=== PATIENT | male | born 1990 | race Caucasian/White ===

== ENCOUNTER → 2016-10-13 | Outpatient (CLI) | payer OTHER ==
[2015-05-19 11:20] VITALS: BP 125/79
--- NOTE | 2016-10-13 15:27 | KCIC ---
Examination: Two views of the chest HISTORY Pneumonia, wheezing, cough. COMPARISON 05/11/2015. Findings : The cardiomediastinal silhouette grossly appears unremarkable. Mild prominent appearing bilateral perihilar bronchovascular markings could be secondary to bronchitis or atypical infection. There are few airspace opacities identified in the right mid lung zone and right lower lobe. No evidence of pleural effusion or pneumothorax. IMPRESSION Mild prominent appearing bilateral perihilar bronchovascular markings could be due to atypical infection or bronchitis. There are few airspace opacities identified in the right mid lung zone and right lung base likely atelectasis or infiltrates. Followup to resolution. Electronically signed by: Alfonso Adam (Oct 13, 2016 15:26:20)
== END | disposition home or self-care (01) ==
LOC: KCIC 15:02
PROVIDERS: ATTEND Nurse Practitioner Family
DX: J18.9 Pneumonia, unspecified organism (principal)
CPT/HCPCS: 71020

== ENCOUNTER → 2017-09-07 | Outpatient (CLI) | payer BC | END | disposition home or self-care (01) | LOC: KCIC 13:38 | DX: R07.89 Other chest pain (principal); R68.83 Chills (without fever); R00.9 Unspecified abnormalities of heart beat | CPT/HCPCS: 71046 ==

== ENCOUNTER 2019-08-25 16:50 | Emergency (ER) | payer SELFPAY ==
[~2019-08-25] VITALS: Ht 182.9 cm; Wt 72.0 kg
[2019-08-25 17:11] VITALS: BP 148/92
[2019-08-25] MEDS ORDERED: cefTRIAXone IM 250 MG VIAL IM ONE (17:15)
[2019-08-25] MEDS ORDERED: AZITHROMYCIN 250 MG TABLET. PO ONE (17:15)
[2019-08-25 17:19] LABS: BILIRUBIN,URINE NEGATIVE (NEG); CLARITY,URINE CLOUDY; COLOR,URINE YELLOW; NITRITE,URINE NEGATIVE (NEG); PH,URINE 7.5; PROTEIN,URINE NEGATIVE (NEG-TRACE)
--- NOTE | 2019-08-25 17:25 | PHYS DOC ---
Past Medical History Past Medical History: Depression, Hypertension Additional Past Medical Histor: Tourettes Past Surgical History: Other Additional Past Surgical Histo: [place] teeth removed Alcohol Use: Heavy Drug Use: Marijuana Adult General Chief Complaint Chief Complaint: URINARY FREQUENCY HPI HPI Patient is a 28 year old male who presents with urinary frequency, dysuria, and milky discharge that started yesterday. The patient states he had unprotected sex two weeks ago. He denies any other symptoms. Complete ROS were reviewed and found to be within normal limits, except as documented in the HPI Current Medications Current Medications Current Medications Medications (Trade) Dose Ordered Sig/Ranjana Start Time Stop Time Status Last Admin Dose Admin Azithromycin (Zithromax) 1,000 mg 1X ONCE 08/25/19 17:15 08/25/19 17:16 DC 08/25/19 17:36 1,000 MG Ceftriaxone Sodium (Rocephin Im) 250 mg 1X ONCE 08/25/19 17:15 08/25/19 17:16 DC 08/25/19 17:36 250 MG Allergies Allergies Allergies Coded Allergies Type Severity Reaction Last Updated Verified No Known Drug Allergies 05/17/15 No Physical Exam Physical Exam Constitutional: Well developed, well nourished, no acute distress, non-toxic appearance. [] HENT: Normocephalic, atraumatic, bilateral external ears normal, oropharynx moist, no oral exudates, nose normal. [] Eyes: PERRLA, EOMI, conjunctiva normal, no discharge. [] Extremities: No tenderness, no cyanosis, no clubbing, ROM intact, no edema. [] Neurologic: Alert and oriented X 3, normal motor function, normal sensory fun ction, no focal deficits noted. [] Psychologic: Affect normal, judgement normal, mood normal. [] Current Patient Data Vital Signs Vital Signs Date Time Temp Pulse Resp B/P (MAP) Pulse Ox O2 Delivery O2 Flow Rate FiO2 08/25/19 17:11 97.9 74 16 148/92 (110) 100 Room Air 97.9 Lab Values Laboratory Tests Test 08/25/19 16:55 Urine Collection Type Unknown Urine Color Yellow Urine Clarity Cloudy Urine pH 7.5 Urine Specific [place] 1.020 Urine Protein Negative mg/dL (NEG-TRACE) Urine Glucose (UA) Negative mg/dL (NEG) Urine Ketones (Stick) Negative mg/dL (NEG) Urine Blood Negative (NEG) Urine Nitrite Negative (NEG) Urine Bilirubin Negative (NEG) Urine Urobilinogen Dipstick 1.0 mg/dL (0.2 mg/dL) Urine Leukocyte Esterase Large (NEG) Urine RBC 0 /HPF (0-2) Urine WBC >40 /HPF (0-4) Urine Bacteria 0 /HPF (0-FEW) EKG EKG [] Radiology/Procedures Radiology/Procedures [] Course & Med Decision Making Course & Med Decision Making Pertinent Labs and Imaging studies reviewed. (See chart for details) Will get UA, and Urine gonorrhea and chlamydia. Will also treat for GC/CHLAM with Rocephin and Zithromax. Urine is otherwise unremarkable. Will d/c home. Dragon Disclaimer Eclectoron Disclaimer This electronic medical record was generated, in whole or in part, using a voice recognition dictation system. Departure Departure Impression: Primary Impression: Concern about STD in male without diagnosis Disposition: HOME, SELF-CARE Condition: STABLE Referrals: NO PCP (PCP) Patient Instructions: Sexually Transmitted Disease Additional Instructions: Thank you for visiting [facility]. We appreciate you trusting us with your care. If any additional problems come up don't hesitate to return to visit us. Please follow up with your primary care provider so they can plan additional care if needed and know about the problem that you had. If symptoms worsen come back to the Emergency Department. Any concerning symptoms that start such as chest pain, shortness of air, weakness or numbness on one side of the body, running high fevers or any other concerning symptoms return to the ER. You have been tested for sexually transmitted diseases in the ER today. Some of your results will not come back for 48-72 hours. If positive, you will get a call letting you know. If you are positive for gonorrhea or chlamydia you have been treated. If they are positive please notify your partner. Please avoid sexual intercourse for 2 weeks to avoid passing the infection back and forth. CLAUDE LUND APRN Aug 25, 2019 17:25
[2019-08-25 17:39] LABS: WBC,URINE >40 /HPF (0-4)
[2019-08-25 17:40] LABS: BACTERIA,URINE 0 /HPF (0-FEW); RBC,URINE 0 /HPF (0-2)
== END 2019-08-25 18:04 | disposition home or self-care (01) ==
LOC: ER 16:50
DX: R35.0 Frequency of micturition (principal); R30.0 Dysuria; F32.9 Major depressive disorder, single episode, unspecified; I10 Essential (primary) hypertension; F12.90 Cannabis use, unspecified, uncomplicated; F10.10 Alcohol abuse, uncomplicated; Z98.890 Other specified postprocedural states; Z20.2 Contact with and (suspected) exposure to infections with a predominantly sexual mode of transmission
CPT/HCPCS: 81001; 87086; 87491; 87591; 96372; 99284; J0696; Q0144

== ENCOUNTER 2019-11-24 01:23 | Emergency (ER) | payer SELFPAY ==
[~2019-11-24] VITALS: Ht 182.9 cm; Wt 80.0 kg
[2019-11-24 03:00] LABS: BASO % 0 % (0-3); EOS # 0.6 x10^3/uL (0.0-0.7); EOS % 8 % (0-3); HEMATOCRIT 50.1 % (39.0-53.0); LYMPH # 2.2 x10^3/uL (1.0-4.8); LYMPH % 26 % (24-48); MEAN CORPUSCULAR HEMOGLOBIN 32 pg (25-35); MEAN CORPUSCULAR HGB CONC 34 g/dL (31-37); MEAN CORPUSCULAR VOLUME 93 fL (79-100); MONO # 0.9 x10^3/uL (0.0-1.1); MONO % 11 % (0-9); NEUT # 4.6 x10^3/uL (1.8-7.7); NEUT % 56 % (31-73); PLATELET COUNT 228 x10^3/uL (140-400); RED BLOOD COUNT 5.37 x10^6/uL (4.30-5.70); WHITE BLOOD COUNT 8.3 x10^3/uL (4.0-11.0)
[2019-11-24] MEDS ORDERED: IV NORMAL SALINE 1000ML BAG 1,000 ML IV SCH (03:00)
[2019-11-24 03:08] LABS: BILIRUBIN,URINE NEGATIVE (NEG); CLARITY,URINE CLEAR; COLOR,URINE YELLOW; NITRITE,URINE NEGATIVE (NEG); PROTEIN,URINE NEGATIVE (NEG-TRACE); UROBILINOGEN,URINE 0.2 mg/dL (0.2 mg/dL)
[2019-11-24 03:09] LABS: CALCIUM 9.1 mg/dL (8.5-10.1); GFR 88.3; POTASSIUM 4.1 mmol/L (3.5-5.1)
[2019-11-24 03:12] LABS: BACTERIA,URINE 0 /HPF (0-FEW); RBC,URINE 0 /HPF (0-2); WBC,URINE OCC /HPF (0-4)
[2019-11-24 03:13] LABS: SQUAMOUS EPITHELIAL CELL,UR OCC /LPF
[2019-11-24] MEDS ORDERED: FAMOTIDINE 20 MG/2 ML VIAL IVP ONE (03:15)
[2019-11-24] MEDS ORDERED: METOCLOPRAMIDE HCL 10 MG/2 ML VIAL. IVP ONE (03:15)
[2019-11-24] MEDS ORDERED: diphenhydrAMINE 50 MG/ML VIAL IVP ONE (03:15)
[2019-11-24] MEDS ORDERED: LIDO:MAALOX 1:1 20 ML SINGLE DOSE. SWSW ONE (03:15)
[2019-11-24 03:17] LABS: ALBUMIN/GLOBULIN RATIO 1.2 (1.0-1.7); MAGNESIUM 2.1 mg/dL (1.8-2.4); TOTAL BILIRUBIN 0.6 mg/dL (0.2-1.0); TOTAL PROTEIN 7.4 g/dL (6.4-8.2)
--- NOTE | 2019-11-24 03:32 | RAD ---
PORTABLE CHEST 1V Clinical Indication: Chest pain Comparison: Two-view chest 09/07/2017. Findings: The cardiomediastinal silhouette is normal. Lungs are clear. There is no pneumothorax. No pleural effusion is appreciated. No acute bone abnormality. IMPRESSION: No acute cardiopulmonary process. Electronically signed by: Nick Wilson MD (11/24/2019 3:28 AM) [id number]
[2019-11-24] MEDS ORDERED: ONDA4TAB12 PO (03:59)
[2019-11-24] MEDS ORDERED: FAMO10TA26 PO (03:59)
--- NOTE | 2019-11-24 03:59 | PHYS DOC ---
Past Medical History Past Medical History: GERD Additional Past Medical Histor: Tourettes Past Surgical History: Other Additional Past Surgical Histo: [place] teeth removed Smoking Status: Current Some Day Smoker Alcohol Use: Heavy Drug Use: Marijuana General Adult EDM: Chief Complaint: HEARTBURN/GI DISTRESS HPI: HPI: Patient is a 29 year old Male who presents with complaint of chest discomfort that started several hours ago. Patient states that he had hoped that symptoms would improve but they didn't. patient does admit that he had been drinking some alcohol and has been for the last several days. He does indicate that he has a history of GERD. He denies any nausea, vomiting or diaphoresis. He rates pain at about a 6 out of 10. [] Review of Systems: Review of Systems: Constitutional: Denies fever or chills. [] Respiratory: Denies cough or shortness of breath. [] Cardiovascular: positive chest pain. [] GI: Denies abdominal pain, nausea, vomiting or diarrhea. [] Neurologic: Denies headache, focal weakness or sensory changes. [] A full 10 point review of systems has been reviewed and is otherwise negative except as noted on history of present illness. Heart Score: Risk Factors: Risk Factors: DM, Current or recent (<one month) smoker, HTN, HLP, family histo ry of CAD, obesity. Risk Scores: Score 0 - 3: 2.5% MACE over next 6 weeks - Discharge Home Score 4 - 6: 20.3% MACE over next 6 weeks - Admit for Clinical Observation Score 7 - 10: 72.7% MACE over next 6 weeks - Early Invasive Strategies Current Medications: Current Medications Medications (Trade) Dose Ordered Sig/[facility] Start Time Stop Time Status Last Admin Dose Admin Diphenhydramine HCl (Benadryl) 25 mg 1X ONCE 11/24/19 03:15 11/24/19 03:17 DC 11/24/19 03:31 25 MG Famotidine (Pepcid Vial) 20 mg 1X ONCE 11/24/19 03:15 11/24/19 03:17 DC 11/24/19 03:31 20 MG Metoclopramide HCl (Reglan Vial) 10 mg 1X ONCE 11/24/19 03:15 11/24/19 03:17 DC 11/24/19 03:31 10 MG Multi-Ingredient Mouthwash/Gargle (Gi Cocktail) 20 ml 1X ONCE 11/24/19 03:15 11/24/19 03:17 DC 11/24/19 03:30 20 ML Sodium Chloride 1,000 ml @ 1,000 mls/hr Q1H 11/24/19 03:00 11/24/19 03:59 11/24/19 03:32 1,000 MLS/HR Allergies: Allergies: Allergies Coded Allergies Type Severity Reaction Last Updated Verified No Known Drug Allergies 05/17/15 No Physical Exam: PE: Constitutional: Well developed, well nourished, no acute distress, non-toxic appearance. [] HENT: Normocephalic, atraumatic, bilateral external ears normal, oropharynx moist, no oral exudates, nose normal. [] Eyes: PERRLA, EOMI, conjunctiva normal, no discharge. [] Neck: Normal range of motion, no tenderness, supple, no stridor. [] Cardiovascular:regular rate and rhythm [] Lungs & Thorax: Bilateral breath sounds clear to auscultation [] Abdomen: Bowel sounds normal, soft, no tenderness. [] Skin: Warm, dry, no erythema, no rash. [] Extremities: No tenderness, no cyanosis, no clubbing, ROM intact, no edema. [] Neurologic: Alert and oriented X 3, normal motor function, normal sensory function, no focal deficits noted. [] Current Patient Data: Labs: Laboratory Tests Test 11/24/19 02:10 11/24/19 02:58 White Blood Count 8.3 x10^3/uL (4.0-11.0) Red Blood Count 5.37 x10^6/uL (4.30-5.70) Hemoglobin 17.0 g/dL (13.0-17.5) Hematocrit 50.1 % (39.0-53.0) Mean Corpuscular Volume 93 fL (79-100) Mean Corpuscular Hemoglobin 32 pg (25-35) Mean Corpuscular Hemoglobin Concent 34 g/dL (31-37) Red Cell Distribution Width 13.0 % (11.5-14.5) Platelet Count 228 x10^3/uL (140-400) Neutrophils (%) (Auto) 56 % (31-73) Lymphocytes (%) (Auto) 26 % (24-48) Monocytes (%) (Auto) 11 % (0-9) H Eosinophils (%) (Auto) 8 % (0-3) H Basophils (%) (Auto) 0 % (0-3) Neutrophils # (Auto) 4.6 x10^3/uL (1.8-7.7) Lymphocytes # (Auto) 2.2 x10^3/uL (1.0-4.8) Monocytes # (Auto) 0.9 x10^3/uL (0.0-1.1) Eosinophils # (Auto) 0.6 x10^3/uL (0.0-0.7) Basophils # (Auto) 0.0 x10^3/uL (0.0-0.2) Sodium Level 138 mmol/L (136-145) Potassium Level 4.1 mmol/L (3.5-5.1) Chloride Level 100 mmol/L (98-107) Carbon Dioxide Level 30 mmol/L (21-32) Anion Gap 8 (6-14) Blood Urea Nitrogen 12 mg/dL (8-26) Creatinine 1.0 mg/dL (0.7-1.3) Estimated GFR (Cockcroft-Gault) 88.3 BUN/Creatinine Ratio 12 (6-20) Glucose Level 93 mg/dL (70-99) Calcium Level 9.1 mg/dL (8.5-10.1) Magnesium Level 2.1 mg/dL (1.8-2.4) Total Bilirubin 0.6 mg/dL (0.2-1.0) Aspartate Amino Transferase (AST) 30 U/L (15-37) Alanine Aminotransferase (ALT) 35 U/L (16-63) Alkaline Phosphatase 90 U/L (46-116) Troponin I Quantitative < 0.017 ng/mL (0.000-0.055) MC-Mtv-F-Type Natriuretic Peptide 22 pg/mL (0-124) Total Protein 7.4 g/dL (6.4-8.2) Albumin 4.0 g/dL (3.4-5.0) Albumin/Globulin Ratio 1.2 (1.0-1.7) Lipase 153 U/L (73-393) Urine Collection Type Unknown Urine Color Yellow Urine Clarity Clear Urine pH 6.0 (<5.0-8.0) Urine Specific [place] 1.015 (1.000-1.030) Urine Protein Negative mg/dL (NEG-TRACE) Urine Glucose (UA) Negative mg/dL (NEG) Urine Ketones (Stick) Trace mg/dL (NEG) Urine Blood Negative (NEG) Urine Nitrite Negative (NEG) Urine Bilirubin Negative (NEG) Urine Urobilinogen Dipstick 0.2 mg/dL (0.2 mg/dL) Urine Leukocyte Esterase Negative (NEG) Urine RBC 0 /HPF (0-2) Urine WBC Occ /HPF (0-4) Urine Squamous Epithelial Cells Occ /LPF Urine Bacteria 0 /HPF (0-FEW) Urine Mucus Slight /LPF Laboratory Tests 11/24/19 02:10 Laboratory Tests 11/24/19 02:10 Vital Signs: Vital Signs Date Time Temp Pulse Resp B/P (MAP) Pulse Ox O2 Delivery O2 Flow Rate FiO2 11/24/19 02:22 97.6 71 18 142/100 (114) 100 Room Air 97.6 EKG: EKG: EKG demonstrates normal sinus rhythm with rate of 66.[] Radiology/Procedures: Radiology/Procedures: [] Course & Med Decision Making: Course & Med Decision Making Pertinent Labs and Imaging studies reviewed. (See chart for details) [] Dragon Disclaimer: [employer] Disclaimer: This electronic medical record was generated, in whole or in part, using a voice recognition dictation system. Departure Departure Impression: Primary Impression: Gastroesophageal reflux Qualified Codes: K21.9 - Gastro-esophageal reflux disease without esophagitis Disposition: HOME, SELF-CARE Condition: STABLE Referrals: NO PCP (PCP) Patient Instructions: Diet for Gastroesophageal Reflux Disease, Adult, Gastroesophageal Reflux Disease, Adult Scripts Famotidine (PEPCID AC) 10 Mg Tablet 1 TAB PO DAILY for 30 Days, #30 TAB 0 Refills Prov: ALMA LONGORIA Jr. DO 11/24/19 Ondansetron (ONDANSETRON ODT) 4 Mg Tab.rapdis 1 TAB PO PRN Q6-8HRS PRN for NAUSEA, #15 TAB Prov: ALMA LONGORIA Jr. DO 11/24/19 ALMA LONGORIA Jr. DO November 24, 2019 03:59
[2019-11-24 04:17] VITALS: BP 145/101
--- NOTE | 2019-11-24 08:03 | EKG ---
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
== END 2019-11-24 04:15 | disposition home or self-care (01) ==
LOC: ER 01:23
DX: K21.9 Gastro-esophageal reflux disease without esophagitis (principal); R07.89 Other chest pain; F10.10 Alcohol abuse, uncomplicated; F12.90 Cannabis use, unspecified, uncomplicated; F17.200 Nicotine dependence, unspecified, uncomplicated; Z98.890 Other specified postprocedural states
CPT/HCPCS: 36415; 71045; 80053; 81001; 83690; 83735; 83880; 84484; 85025; 93005; 96374; 96375; 99285; J1200; J2765; J3490; J7030

== ENCOUNTER 2020-02-25 22:30 | Emergency (ER) | payer SELFPAY ==
[~2020-02-25] VITALS: Ht 182.9 cm; Wt 81.8 kg
[~2020-02-25 22:30] MED LIST: FAMO10TA26 PO; ONDA4TAB12 PO
[2020-02-25 22:40] VITALS: BP 149/91
--- NOTE | 2020-02-25 22:58 | PHYS DOC ---
Past Medical History Past Medical History: GERD Additional Past Medical Histor: [place] Past Surgical History: Other Additional Past Surgical Histo: [place] teeth removed Smoking Status: Current Every Day Smoker Alcohol Use: Heavy Drug Use: Marijuana General Adult EDM: Chief Complaint: SEXUALLY TRANSMITTED DISEASE HPI: HPI: Patient is a 29 year old male who presents with complaints of penile discharge and pain with urination for the last 24 hours. Patient reports he had unprotected sex recently. He started noticing a change yesterday and today he is having difficulty with a white discharge from the penis, pain with urination and urinary frequency and urgency. He denies any testicular pain back pain or abdominal pain. He denied nausea, vomiting, cough, fever or chills. He describes the pain is excruciating, worse with urination and not radiating. It is a sharp pain. Review of Systems: Review of Systems: Constitutional: Denies fever or chills. [] Eyes: Denies change in visual acuity. [] HENT: Denies nasal congestion or sore throat. [] Respiratory: Denies cough or shortness of breath. [] Cardiovascular: Denies chest pain or edema. [] GI: Denies abdominal pain, nausea, vomiting, bloody stools or diarrhea. [] : See HPI [] Musculoskeletal: Denies back pain or joint pain. [] Integument: Denies rash. [] Neurologic: Denies headache, focal weakness or sensory changes. [] Endocrine: Denies polyuria or polydipsia. [] Lymphatic: Denies swollen glands. [] Psychiatric: Denies depression or anxiety. [] Heart Score: Risk Factors: Risk Factors: DM, Current or recent (<one month) smoker, HTN, HLP, family history of CAD, obesity. Risk Scores: Score 0 - 3: 2.5% MACE over next 6 weeks - Discharge Home Score 4 - 6: 20.3% MACE over next 6 weeks - Admit for Clinical Observation Score 7 - 10: 72.7% MACE over next 6 weeks - Early Invasive Strategies Allergies: Allergies: Allergies Coded Allergies Type Severity Reaction Last Updated Verified No Known Drug Allergies 05/17/15 No Physical Exam: PE: Constitutional: Well developed, well nourished, no acute distress, non-toxic appearance. [] HENT: Normocephalic, atraumatic, bilateral external ears normal, oropharynx moist, no oral exudates, nose normal. [] Eyes: PERRLA, EOMI, conjunctiva normal, no discharge. [] Neck: Normal range of motion, no tenderness, supple, no stridor. [] Cardiovascular:Heart rate regular rhythm, no murmur [] Lungs & Thorax: Bilateral breath sounds clear to auscultation [] Abdomen: Bowel sounds normal, soft, no tenderness, no masses, no pulsatile masses. : Normal-appearing circumcised penis with a whitish discharge from the urethra, testicles normal in size and position without tenderness, no inguinal hernias. [] Skin: Warm, dry, no erythema, no rash. [] Back: No tenderness, no CVA tenderness. [] EKG: EKG: [] Radiology/Procedures: Radiology/Procedures: [] Course & Med Decision Making: Course & Med Decision Making Pertinent Labs and Imaging studies reviewed. (See chart for details) 0010-patient left prior to me giving him any discharge instructions. [] Dragon Disclaimer: Dragon Disclaimer: This electronic medical record was generated, in whole or in part, using a voice recognition dictation system. Departure Departure Referrals: NO PCP (PCP) Justicifation of Admission Dx: Justifications for Admission: Justification of Admission Dx: N/A CHAO BANDA MD Feb 25, 2020 22:58
[2020-02-25] MEDS ORDERED: AZITHROMYCIN 250 MG TABLET. PO ONE (23:00)
[2020-02-25] MEDS ORDERED: KETOROLAC 60 MG/2 ML VIAL. IM ONE (23:00)
[2020-02-25] MEDS ORDERED: cefTRIAXone IM 250 MG VIAL IM ONE (23:00)
[2020-02-25 23:24] LABS: BILIRUBIN,URINE NEGATIVE (NEG); CLARITY,URINE CLEAR; COLOR,URINE YELLOW; NITRITE,URINE NEGATIVE (NEG); PROTEIN,URINE NEGATIVE (NEG-TRACE); UROBILINOGEN,URINE 0.2 mg/dL (0.2 mg/dL)
[2020-02-25 23:29] LABS: BACTERIA,URINE 0 /HPF (0-FEW); RBC,URINE 0 /HPF (0-2); WBC,URINE >40 /HPF (0-4)
== END 2020-02-26 00:02 | disposition left against medical advice (07) ==
LOC: ER 22:30
DX: N48.89 Other specified disorders of penis (principal); R35.0 Frequency of micturition; R30.9 Painful micturition, unspecified; K21.9 Gastro-esophageal reflux disease without esophagitis; F17.200 Nicotine dependence, unspecified, uncomplicated; F12.90 Cannabis use, unspecified, uncomplicated; F10.10 Alcohol abuse, uncomplicated; Z98.890 Other specified postprocedural states
CPT/HCPCS: 81001; 87086; 87491; 87591; 96372; 99284; J0696; J1885

== ENCOUNTER 2020-09-20 19:00 | Emergency (ER) | payer SELFPAY ==
[~2020-09-20] VITALS: Ht 182.9 cm; Wt 79.5 kg
[2020-09-20 20:08] VITALS: BP 127/94
[2020-09-20] MEDS ORDERED: DOXY100T PO (20:36)
--- NOTE | 2020-09-20 20:36 | PHYS DOC ---
Past Medical History Past Medical History: GERD Additional Past Medical Histor: Tourettes, ULCERATIVE COLITIS Past Surgical History: Other Additional Past Surgical Histo: [place] teeth removed Smoking Status: Current Every Day Smoker Alcohol Use: Heavy Drug Use: Marijuana General Adult EDM: Chief Complaint: SEXUALLY TRANSMITTED DISEASE HPI: HPI: Patient is a 29 year old male with history of gonorrhea presenting today complaining of penile discharge and dysuria for 2 days. Patient reports concerns for STDs. Has history of gonorrhea with similar symptoms. Review of Systems: Review of Systems: Constitutional: Denies fever or chills. [] GI: Denies abdominal pain, nausea, vomiting, bloody stools or diarrhea. [] : Reports dysuria and penile discharge Musculoskeletal: Denies back pain or joint pain. [] Integument: Denies rash. [] Neurologic: Denies headache, focal weakness or sensory changes. [] Psychiatric: Denies depression or anxiety. [] Heart Score: Risk Factors: Risk Factors: DM, Current or recent (<one month) smoker, HTN, HLP, family history of CAD, obesity. Risk Scores: Score 0 - 3: 2.5% MACE over next 6 weeks - Discharge Home Score 4 - 6: 20.3% MACE over next 6 weeks - Admit for Clinical Observation Score 7 - 10: 72.7% MACE over next 6 weeks - Early Invasive Strategies Allergies: Allergies: Allergies Coded Allergies Type Severity Reaction Last Updated Verified No Known Drug Allergies 05/17/15 No Physical Exam: PE: Constitutional: Well developed, well nourished, no acute distress, non-toxic appearance. [] Abdomen: Bowel sounds normal, soft, no tenderness, no masses, no pulsatile masses. [] Skin: Warm, dry, no erythema, no rash. [] Back: No tenderness, no CVA tenderness. [] Extremities: No tenderness, no cyanosis, no clubbing, ROM intact, no edema. [] Neurologic: Alert and oriented X 3, normal motor function, normal sensory function, no focal deficits noted. [] Psychologic: Affect normal, judgement normal, mood normal. [] Current Patient Data: Vital Signs: Vital Signs Date Time Temp Pulse Resp B/P (MAP) Pulse Ox O2 Delivery O2 Flow Rate FiO2 09/20/20 20:08 98.4 95 18 127/94 (105) 99 Room Air 98.4 EKG: EKG: [] Radiology/Procedures: Radiology/Procedures: [] Course & Med Decision Making: Course & Med Decision Making Pertinent Labs and Imaging studies reviewed. (See chart for details) This is a 29-year-old male patient presenting to the ED today complaining of penile discharge and dysuria for 2 days. He is concerned he has STDs. Was given the new standard STD treatment Flagyl, Rocephin and sent home with doxycy cao as well as education on STDs Lacey Disclaimer: Lacey Disclaimer: This electronic medical record was generated, in whole or in part, using a voice recognition dictation system. Departure Departure Impression: Primary Impression: Concern about STD in male without diagnosis Disposition: 01 DC HOME SELF CARE/HOMELESS Condition: STABLE Referrals: NO PCP (PCP) Follow-up with health department as needed Patient Instructions: Sexually Transmitted Disease Additional Instructions: You were treated for sexually transmitted diseases. Use protection at all times. Ensure you complete your antibiotics. Follow-up with the health department as needed Scripts Doxycycline Hyclate (DOXYCYCLINE HYCLATE) 100 Mg Tablet 1 TAB PO BID, #14 TAB Prov: REGIS TRIVEDI APRN 09/20/20 REGIS TRIVEDI APRN Sep 20, 2020 20:36
[2020-09-20 20:42] LABS: BILIRUBIN,URINE NEGATIVE (NEG); CLARITY,URINE CLEAR; COLOR,URINE YELLOW; NITRITE,URINE NEGATIVE (NEG); PH,URINE 6.5 (<5.0-8.0); PROTEIN,URINE NEGATIVE (NEG-TRACE); UROBILINOGEN,URINE 0.2 mg/dL (0.2 mg/dL)
[2020-09-20 20:47] LABS: BACTERIA,URINE 0 /HPF (0-FEW); RBC,URINE 0 /HPF (0-2)
[2020-09-20] MEDS ORDERED: cefTRIAXone IM 500 MG VIAL. IM ONE (21:00)
[2020-09-20] MEDS ORDERED: metroNIDAZOLE 500 MG TABLET PO ONE (21:15)
== END 2020-09-20 21:01 | disposition home or self-care (01) ==
LOC: ER 19:00
DX: R30.0 Dysuria (principal); K21.9 Gastro-esophageal reflux disease without esophagitis; F17.200 Nicotine dependence, unspecified, uncomplicated; F10.10 Alcohol abuse, uncomplicated; F12.90 Cannabis use, unspecified, uncomplicated; Z98.890 Other specified postprocedural states; Z20.2 Contact with and (suspected) exposure to infections with a predominantly sexual mode of transmission
CPT/HCPCS: 81001; 87086; 87491; 87591; 96372; 99283; J0696